=== PATIENT | female | born 1990 | race Caucasian/White ===

== ENCOUNTER 2017-09-18 06:38 | Observation (INO) | payer OTHER ==
[~2017-09-18] VITALS: Ht 165.1 cm; Wt 59.0 kg
[~2017-09-18 06:38] MED LIST: CITA10TA4 PO; IRON18TA2 PO; NITR-29 PO; Z.0.BCPILL PO
[2017-09-18] MEDS ORDERED: DIATRIZOATE MEGLUM/DIATRIZOATE SOD 120 ML BTL (for RAD DIAG) RECTAL ONE (06:39)
[2017-09-18 06:40] VITALS: BP 127/91; PULSE 96; RESP 16; TEMP 97.9; O2SAT 100
[2017-09-18] MEDS ORDERED: SODIUM CHLOR 0.9% 1000 ML INJ 1,000 ML IV SCH (07:08)
[2017-09-18] MEDS ORDERED: MORPHINE SULFATE 4 MG/ML INJ IV PUSH ONE (07:15)
[2017-09-18] MEDS ORDERED: PEG (High)/E-LYTE SOLN 4000 ML BTL PO ONE (07:15)
[2017-09-18] MEDS ORDERED: SODIUM CHLORIDE 0.9% FLUSH 10 ML FLUSH IV FLUSH PRN ×2 (07:15→17:30)
[2017-09-18] MEDS ORDERED: ONDANSETRON HCL 4 MG/2 ML VIAL IVP ONE (07:15)
[2017-09-18] MEDS ORDERED: KETOROLAC TROMETHAMINE 30 MG/ML (IVP) VIAL IVP ONE (07:15)
[2017-09-18 07:26] LABS: AUTOMATED NEUTROPHIL # 4.4 TH/MM3 (1.8-7.7); BASOPHIL % 0.3 % (0.0-2.0); EOSINOPHIL # 0.2 TH/MM3 (0-0.4); EOSINOPHIL % 3.4 % (0.0-4.0); HEMATOCRIT 39.3 % (35.0-46.0); HEMO FLAGS DIFF FINAL; LYMPHOCYTE # 1.8 TH/MM3 (1.0-4.8); MEAN CELL VOLUME 89.1 FL (80.0-100.0); MEAN CORPUSCULAR HEMOGLOBIN 30.2 PG (27.0-34.0); MEAN CORPUSCULAR HGB CONC 33.9 % (32.0-36.0); NEUT % 64.3 % (16.0-70.0); PLATELET COUNT 172 TH/MM3 (150-450); RED BLOOD COUNT 4.42 MIL/MM3 (4.00-5.30); RED CELL DISTRIBUTION WIDTH 12.3 % (11.6-17.2); WHITE BLOOD COUNT 6.9 TH/MM3 (4.0-11.0)
[2017-09-18] MEDS ORDERED: DIATRIZOATE MEGLUM/DIATRIZOATE SOD 9 ML CUP ONE (07:44)
[2017-09-18 07:47] LABS: BLOOD, URINE NEG (NEG); GLUCOSE,URINE NEG (NEG); KETONE, URINE NEG (NEG); NITRITE,URINE NEG (NEG); PH, URINE 6.5 (5.0-8.5); URINE COLOR YELLOW (YELLW/STRAW)
[2017-09-18 07:58] LABS: ALT (GPT) 21 U/L (10-53); ANION GAP 7 MEQ/L (5-15); AST (GOT) 11 U/L (15-37); BICARBONATE 26.7 MEQ/L (21.0-32.0); BLOOD UREA NITROGEN 12 MG/DL (7-18); CHLORIDE 105 MEQ/L (98-107); GLOMERULAR FILTRATION RATE 89 ML/MIN (>89); POTASSIUM 3.8 MEQ/L (3.5-5.1); SODIUM (NA) 139 MEQ/L (136-145)
[2017-09-18 08:01] LABS: ALKALINE PHOSPHATASE 49 U/L (45-117); TOTAL BILIRUBIN ADULT 0.3 MG/DL (0.2-1.0)
[2017-09-18 08:09] LABS: MUCUS URINE FEW /lpf (OCC); WBC, URINE 0-2 /hpf (0-5)
[2017-09-18 08:10] LABS: BACTERIA, URINE OCC /hpf; COMMENT (UR) CULT NOT INDICATED; CULTURE IF INDICATED CULT NOT INDICATED
[2017-09-18 08:15] VITALS: BP 120/88; PULSE 76; RESP 16; O2SAT 100
[2017-09-18] MEDS ORDERED: MORPHINE SULFATE 2 MG/ML INJ IV PUSH ONE (08:15)
[2017-09-18] MEDS ORDERED: DICYCLOMINE HCL 10 MG CAP PO ONE (08:15)
--- NOTE | 2017-09-18 08:35 | PD ---
HPI Chief Complaint: Abdominal Pain Time Seen by Provider: 07:02 Travel History International Travel<30 days: No Contact w/Intl Traveler<30days: No Traveled to known affect area: No History of Present Illness HPI Patient is a 27 year old female who comes in complaining of constipation and abdominal pain. She says she has not had a bowel movement in about 12 days. She says twice she passed a small, hard stool, but nothing else. She says that in the past few days she has developed increasingly severe pain to the sides of her abdomen. She has had some nausea, but no vomiting. She was seen at [facility] twice and discharged with laxatives, which she says have not helped. She has tried enemas without relief. She says this happened last year and she was admitted for 5 days and had bowel prep and GI studies. She says she was told she had gastroparesis, but has not had any issues since last year. PFSH Past Medical History Anemia: Yes Anxiety: Yes Immunizations Current: Yes Thyroid Disease: Yes Tetanus Vaccination: < 5 Years Influenza Vaccination: Yes ?: Not LMP: 09/08/17 Social History Alcohol Use: Yes (BEER, WINE) Tobacco Use: No Substance Use: No Allergies-Medications (Allergen,Severity, Reaction): Coded Allergies: penicillin G (Unverified Allergy, Severe, RASH ALL OVER, 09/18/17) Reported Meds & Prescriptions Reported Meds & Active Scripts Active Review of Systems Except as stated in HPI: all other systems reviewed are Neg General / Constitutional: No: Fever, Chills HENT: No: Headaches, Lightheadedness Cardiovascular: No: Chest Pain or Discomfort Respiratory: No: Shortness of Breath Gastrointestinal: Positive: Nausea, Abdominal Pain, No: Vomiting Genitourinary: No: Dysuria Musculoskeletal: No: Weakness, Edema Skin: No Rash, No Change in Pigmentation Neurologic: No: Weakness, Dizziness Physical Exam Narrative GENERAL: Awake and alert, in no acute distress. SKIN: Focused skin assessment warm/dry. HEAD: Atraumatic. Normocephalic. EYES: Pupils equal and round. No scleral icterus. ENT: Mucous membranes pink and moist. NECK: Trachea midline. No JVD. CARDIOVASCULAR: Regular rate and rhythm. No murmur appreciated. RESPIRATORY: No accessory muscle use. Clear to auscultation. Breath sounds equal bilaterally. GASTROINTESTINAL: Abdomen soft, nondistended. Tender to palpation to both sides of the abdomen, No rebound or guarding. MUSCULOSKELETAL: No obvious deformities. No clubbing. No cyanosis. No edema. NEUROLOGICAL: Awake and alert. No obvious cranial nerve deficits. Motor grossly within normal limits. Normal speech. PSYCHIATRIC: Appropriate mood and affect; insight and judgment normal. Data Data Last Documented VS Vital Signs Date Time Temp Pulse Resp B/P (MAP) Pulse Ox O2 Delivery O2 Flow Rate FiO2 09/18/17 16:10 81 16 110/69 (83) 100 Room Air 09/18/17 06:40 97.9 Orders Orders Complete Blood Count With Diff (09/18/17 07:08) Comprehensive Metabolic Panel (09/18/17 07:08) Lipase (09/18/17 07:08) Urinalysis - C+S If Indicated (09/18/17 07:08) Ct Abd/Pel W Iv Contrast(Rout) (09/18/17 07:08) Iv Access Insert/Monitor (09/18/17 07:08) Ecg Monitoring (09/18/17 07:08) Oximetry (09/18/17 07:08) Morphine Inj (Morphine Inj) (09/18/17 07:15) Ondansetron Inj (Zofran Inj) (09/18/17 07:15) Sodium Chlor 0.9% 1000 Ml Inj (Ns 1000 M (09/18/17 07:08) Sodium Chloride 0.9% Flush (Ns Flush) (09/18/17 07:15) Ketorolac Inj (Toradol Inj) (09/18/17 07:15) Ed Urine Pregnancytest Poc (09/18/17 07:08) Peg (High)/E-Lyte Liq (Colyte Liq) (09/18/17 07:15) Diatrizoate Liq ( Gastroview Liq) (09/18/17 07:44) Morphine Inj (Morphine Inj) (09/18/17 08:15) Dicyclomine (Bentyl) (09/18/17 08:15) Iohexol 350 Inj (Omnipaque 350 Inj) (09/18/17 09:09) Metoclopramide Inj (Reglan Inj) (09/18/17 10:15) Acetamin-Hydrocod 325-5 Mg ([place] 5-325 (09/18/17 12:15) Fleets Enema (Adult) (Fleets Enema (Adul (09/18/17 12:30) Gastrografin Enema (09/18/17 ) Lorazepam Inj (Ativan Inj) (09/18/17 14:30) Sodium Chlor 0.9% 1000 Ml Inj (Ns 1000 M (09/18/17 15:30) Diatrizoate Liq ( Gastroview Liq) (09/18/17 06:39) Admit Order (Ed Use Only) (09/18/17 ) Labs Laboratory Tests Test 09/18/17 07:10 09/18/17 07:23 White Blood Count 6.9 TH/MM3 Red Blood Count 4.42 MIL/MM3 Hemoglobin 13.3 GM/DL Hematocrit 39.3 % Mean Corpuscular Volume 89.1 FL Mean Corpuscular Hemoglobin 30.2 PG Mean Corpuscular Hemoglobin Concent 33.9 % Red Cell Distribution Width 12.3 % Platelet Count 172 TH/MM3 Mean Platelet Volume 9.3 FL Neutrophils (%) (Auto) 64.3 % Lymphocytes (%) (Auto) 26.0 % Monocytes (%) (Auto) 6.0 % Eosinophils (%) (Auto) 3.4 % Basophils (%) (Auto) 0.3 % Neutrophils # (Auto) 4.4 TH/MM3 Lymphocytes # (Auto) 1.8 TH/MM3 Monocytes # (Auto) 0.4 TH/MM3 Eosinophils # (Auto) 0.2 TH/MM3 Basophils # (Auto) 0.0 TH/MM3 CBC Comment DIFF FINAL Differential Comment Blood Urea Nitrogen 12 MG/DL Creatinine 0.79 MG/DL Random Glucose 79 MG/DL Total Protein 7.7 GM/DL Albumin 4.0 GM/DL Calcium Level 9.0 MG/DL Alkaline Phosphatase 49 U/L Aspartate Amino Transf (AST/SGOT) 11 U/L Alanine Aminotransferase (ALT/SGPT) 21 U/L Total Bilirubin 0.3 MG/DL Sodium Level 139 MEQ/L Potassium Level 3.8 MEQ/L Chloride Level 105 MEQ/L Carbon Dioxide Level 26.7 MEQ/L Anion Gap 7 MEQ/L Estimat Glomerular Filtration Rate 89 ML/MIN Lipase 142 U/L Urine Color YELLOW Urine Turbidity HAZY Urine pH 6.5 Urine Specific [place] 1.015 Urine Protein NEG mg/dL Urine Glucose (UA) NEG mg/dL Urine Ketones NEG mg/dL Urine Occult Blood NEG Urine Nitrite NEG Urine Bilirubin NEG Urine Urobilinogen LESS THAN 2.0 MG/DL Urine Leukocyte Esterase NEG Urine RBC NONE /hpf Urine WBC 0-2 /hpf Urine Squamous Epithelial Cells 6-8 /hpf Urine Amorphous Sediment MOD Urine Bacteria OCC /hpf Urine Mucus FEW /lpf Microscopic Urinalysis Comment CULT NOT INDICATED MDM Medical Decision Making Medical Screen Exam Complete: Yes Emergency Medical Condition: Yes Differential Diagnosis Constipation vs obstipation vs obstruction Narrative Course and is a 27-year-old female comes in complaining of constipation. She says she has not had a bowel movement in 12 days. Exam shows tenderness to the size of the abdomen. IV established, labs sent. Labs show no acute abnormalities. CT abdomen and pelvis shows stool in the rectum. Patient given GoLYTELY as well as an enema with no results. She has are the tried [id number] laxatives, enemas, lactulose. I spoke with Dr. Child of GI who recommended a Gastrografin enema. The Gastrografin enema was performed without any results. Patient will be admitted for colonoscopy. Diagnosis Primary Impression: Fecal impaction of colon Admitting Information Admitting Physician Requests: Admit Scripts Wheat Dextrin (Benefiber) 3 Gram/4 Gram Powder 1 UNIT PO DAILY for Bowel Management for 30 Days, CONTAINER 2 tsp daily of Benefiber Prov: Chela Cain PA-C 09/19/17 Christen Manning MD Sep 18, 2017 08:35
[2017-09-18] MEDS ORDERED: IOHEXOL 350 MG/ML 10 ML VIAL (for RAD DIAG) IVCONTRAST ONE (09:09)
--- NOTE | 2017-09-18 09:22 | RADRPT ---
EXAM DATE/TIME: 09/18/2017 08:59 [facility] COMPARISON: No previous studies available for comparison. INDICATIONS : Constipation for twelve days. IV CONTRAST: 64 cc Omnipaque 350 (iohexol) IV ORAL CONTRAST: Prescribed oral contrast ingested. RADIATION DOSE: 5.27 CTDIvol (mGy) MEDICAL HISTORY : None SURGICAL HISTORY : None. ENCOUNTER: Initial ACUITY: 1 week PAIN SCALE: 5/10 LOCATION: Bilateral abdomen TECHNIQUE: Volumetric scanning of the abdomen and pelvis was performed. Using automated exposure control and ad justment of the mA and/or kV according to patient size, radiation dose was kept as low as reasonably achievable to obtain optimal diagnostic quality images. DICOM format image data is available electro nically for review and comparison. FINDINGS: LOWER LUNGS: The visualized lower lungs are clear. LIVER: Homogeneous density without lesion. There is no dilation of the biliary tree. No calcified gallston es. SPLEEN: Normal size without lesion. PANCREAS: Within normal limits. KIDNEYS: Normal in size and shape. There is no mass, stone or hydronephrosis. There is an incidental 8 mm and 5 mm low-density lesion in the right mid kidney that are too small to characterize. ADRENAL GLANDS: Within normal limits. VASCULAR: There is no aortic aneurysm. BOWEL/MESENTERY: The stomach, small bowel, and colon demonstrate no acute abnormality. There is no free intraperitone al air or fluid. Appendix is normal. There is a prominent amount of stool within the rectum. ABDOMINAL WALL: Within normal limits. RETROPERITONEUM: There is no lymphadenopathy. BLADDER: No wall thickening or mass. REPRODUCTIVE: Within normal limits. INGUINAL: There is no lymphadenopathy or hernia. MUSCULOSKELETAL: Within normal limits for patient age. CONCLUSION: No acute finding is identified within the abdomen or pelvis. There is a prominent volume of stool wit hin the rectum. Obdulio Spring MD on September 18, 2017 at 9:17 Board Certified Radiologist. This report was verified electronically.
[2017-09-18] MEDS ORDERED: METOCLOPRAMIDE INJ 10 MG in SODIUM CHLORIDE 0.9% INJ 50 ML IV ONE (10:15)
[2017-09-18 11:46] VITALS: BP 134/79; PULSE 81; RESP 16; O2SAT 100
[2017-09-18] MEDS ORDERED: ACETAMINOPHEN/HYDROcodone 325 MG/5 MG TAB PO ONE (12:15)
[2017-09-18] MEDS ORDERED: SOD PHOSPHATE/SOD BIPHOSPHATE (ADULT) ENEMA 133ML RECTAL ONE (12:30)
[2017-09-18] MEDS ORDERED: LORazepam 2 MG/ML VIAL IV PUSH ONE (14:30)
[2017-09-18] MEDS ORDERED: SODIUM CHLOR 0.9% 1000 ML INJ 1,000 ML IV ONE (15:30)
--- NOTE | 2017-09-18 15:38 | RADRPT ---
EXAM DATE/TIME: 09/18/2017 14:41 [facility] COMPARISON: CT ABDOMEN & PELVIS W CONTRAST, September 18, 2017, 8:59. CT ABDOMEN & PELVIS W CONTRAST, May 31, 2010, 2:37. INDICATIONS : Constipation for over 12 days. FLUORO TIME: 2.0 minutes IMAGE COUNT: ? CONTRAST: 1. Gastroview MEDICAL HISTORY : Gastroparesis. SURGICAL HISTORY : None. ENCOUNTER: Initial ACUITY: 2 weeks PAIN SCORE: 5/10 LOCATION: Abdomen. FINDINGS: Preliminary film is unremarkable. Under fluoroscopic guidance a Gastrografin enema was performed with free flow of contrast to the cecu m. No obstructing mass is visualized. CONCLUSION: Unremarkable Gastrografin enema. Obdulio Spring MD on September 18, 2017 at 15:35 Board Certified Radiologist. This report was verified electronically.
[2017-09-18 16:10] VITALS: BP 110/69; PULSE 81; RESP 16; O2SAT 100
--- NOTE | 2017-09-18 17:14 | PD.CONS ---
HPI History of Present Illness This is a 27 year old who presented with abd pain. Pain is in the lower abdomen and started 3-4 weeks, was intermittent. Eating makes it worse. She had been constipated and has had 1 BM that was soft in the last 12 days. SHe has not had a BM for 8 says. SHe vomited few days ago, is nauseous now. Since then she has consumed 1 bottle mg citrate, BID lactulose for 5 days,1 x linzess , 1 x amitiza, stool softener, 3 x Fleets enemas at home. She had brown watery effluent after the enemas. She had watery stool after the amitiza. In the ER she has had 1 fleets, 1 gallon of GoLytely, and a gastrografin enema. She had 1 pellet of stool after the gastrografin enema, which she said was painful. CT showing prominent volume stool in rectum. She last had EGD/colonoscopy 07/[address] Asencio, couple polyps found, esophagitis. She also had GES which indicated gastroparesis, she was given linzess and amitiza. She has had constipation for the last year. She takes oral iron since 20y of age. NO rectal bleeding. Admits 5 lbs weight loss in the last month. (Melissa Akins) PFSH Past Medical History CANDE Past Surgical History none (Melissa Akins) Coded Allergies: penicillin G (Unverified Allergy, Severe, RASH ALL OVER, 09/18/17) Family History BrCa DM CHF HTN Social History rare ETOH NO tobacco or illicit drug use (Melissa Akins) Review of Systems Constitutional: DENIES: Fever Eyes: DENIES: Blurred vision Ears, nose, mouth, throat: DENIES: Hearing loss Respiratory: DENIES: Wheezing Gastrointestinal: COMPLAINS OF: Abdominal pain, Constipation, Nausea, DENIES: Black stools, Bloody stools, Diarrhea Genitourinary: DENIES: Hematuria Musculoskeletal: DENIES: Joint Swelling Integumentary: DENIES: Jaundice Neurologic: DENIES: Abnormal gait Psychiatric: DENIES: Confusion (Melissa Akins) GI Exam Vitals I&O Vital Signs Date Time Temp Pulse Resp B/P (MAP) Pulse Ox O2 Delivery O2 Flow Rate FiO2 09/18/17 16:10 81 16 110/69 (83) 100 Room Air 09/18/17 11:46 81 16 134/79 (97) 100 Room Air 09/18/17 08:15 76 16 120/88 (99) 100 Room Air 09/18/17 06:40 97.9 96 16 127/91 (103) 100 Room Air I/O 09/17/17 09/17/17 09/17/17 09/18/17 09/18/17 09/18/17 06:59 14:59 22:59 06:59 14:59 22:59 Intake Total 1052 ml Balance 1052 ml Intake IV Total 1052 ml Imaging Last Impressions Abdomen/Pelvis CT 09/18/17 0708 Signed Impressions: Service Date/Time: Monday, September 18, 2017 08:59 - CONCLUSION: No acute finding is identified within the abdomen or pelvis. There is a prominent volume of stool within the rectum. Obdulio Spring MD Enema w/Water Soluble 09/18/17 0000 Signed Impressions: Service Date/Time: Monday, September 18, 2017 14:41 - CONCLUSION: Unremarkable Gastrografin enema. Obdulio Spring MD Laboratory Test 09/18/17 07:10 09/18/17 07:23 White Blood Count 6.9 TH/MM3 Red Blood Count 4.42 MIL/MM3 Hemoglobin 13.3 GM/DL Hematocrit 39.3 % Mean Corpuscular Volume 89.1 FL Mean Corpuscular Hemoglobin 30.2 PG Mean Corpuscular Hemoglobin Concent 33.9 % Red Cell Distribution Width 12.3 % Platelet Count 172 TH/MM3 Mean Platelet Volume 9.3 FL Neutrophils (%) (Auto) 64.3 % Lymphocytes (%) (Auto) 26.0 % Monocytes (%) (Auto) 6.0 % Eosinophils (%) (Auto) 3.4 % Basophils (%) (Auto) 0.3 % Neutrophils # (Auto) 4.4 TH/MM3 Lymphocytes # (Auto) 1.8 TH/MM3 Monocytes # (Auto) 0.4 TH/MM3 Eosinophils # (Auto) 0.2 TH/MM3 Basophils # (Auto) 0.0 TH/MM3 CBC Comment DIFF FINAL Differential Comment Blood Urea Nitrogen 12 MG/DL Creatinine 0.79 MG/DL Random Glucose 79 MG/DL Total Protein 7.7 GM/DL Albumin 4.0 GM/DL Calcium Level 9.0 MG/DL Alkaline Phosphatase 49 U/L Aspartate Amino Transf (AST/SGOT) 11 U/L Alanine Aminotransferase (ALT/SGPT) 21 U/L Total Bilirubin 0.3 MG/DL Sodium Level 139 MEQ/L Potassium Level 3.8 MEQ/L Chloride Level 105 MEQ/L Carbon Dioxide Level 26.7 MEQ/L Anion Gap 7 MEQ/L Estimat Glomerular Filtration Rate 89 ML/MIN Lipase 142 U/L Urine Color YELLOW Urine Turbidity HAZY Urine pH 6.5 Urine Specific [place] 1.015 Urine Protein NEG mg/dL Urine Glucose (UA) NEG mg/dL Urine Ketones NEG mg/dL Urine Occult Blood NEG Urine Nitrite NEG Urine Bilirubin NEG Urine Urobilinogen LESS THAN 2.0 MG/DL Urine Leukocyte Esterase NEG Urine RBC NONE /hpf Urine WBC 0-2 /hpf Urine Squamous Epithelial Cells 6-8 /hpf Urine Amorphous Sediment MOD Urine Bacteria OCC /hpf Urine Mucus FEW /lpf Microscopic Urinalysis Comment CULT NOT INDICATED Physical Examination HEENT: PERRL; normocephalic; atraumatic; no jaundice. CHEST: CTA CARDIAC: RRR ABDOMEN: Soft, nondistended, upper quadrant TTP; no hepatosplenomegaly; bowel sounds are present in all four quadrants. EXTREMITIES: No clubbing, cyanosis, or edema. SKIN: Normal; no rash; no jaundice. PALEONTOLOGY TEACHER: No focal deficits; alert and oriented times three. (Melissa Akins) Assessment and Plan Plan ASSESSMENT - constipation - severe, chronic. For the last year. No BM 8 days. Pt has tried linzess, amitiza, enemas, mg citrate 1 x bottle, 1 gallon GoLytely. Last colonoscopy/EGD 1 y ago and found esophagitis, colon polyps. PLAN - relistor now - 1 x mg citrate - colonoscopy & EGD in am - clears - NPO after midnight - obtain consent - further recs to follow this pt seen by myself and Dr Child and joaquin ntoe is written on his behalf (Melissa Akins) Physician Comments Seen and examined with PUBLIC WORKS TECHNICIAN, EGD/ Colonscopy planned for tomorrow. Mag citrate today. Will follow, thank you (Kevin Child MD) Melissa Akins Sep 18, 2017 17:14 Kevin Child MD Sep 18, 2017 17:40
[2017-09-18] MEDS ORDERED: METHYLNALTREXONE BROMIDE 12 MG/0.6 ML VIAL SQ ONE (17:15)
--- NOTE | 2017-09-18 17:24 | HHI.HP ---
[facility] Primary Care Physician Marga Yap, DO Admission Diagnosis obstipation Diagnoses: (1) Constipation Diagnosis: Principal (2) Obstipation Diagnosis: Principal (3) Abdominal pain Diagnosis: Principal (4) Fecal impaction of colon Diagnosis: Principal Chief Complaint: ABDOMINAL PAIN Travel History International Travel<30 Days: No Contact w/Intl Traveler <30 Da: No Traveled to Known Affected Are: No History of Present Illness Patient is a 27 year old female who comes in complaining of constipation and abdominal pain. She says she has not had a bowel movement in about 12 days. She says twice she passed a small, hard stool, but nothing else. She says that in the past few days she has developed increasingly severe pain to the sides of her abdomen. She has had some nausea, but no vomiting. She was seen at [facility] twice and discharged with laxatives, which she says have not helped. She has tried enemas without relief. She says this happened last year and she was admitted for 5 days and had bowel prep and GI studies. She says she was told she had gastroparesis, but has not had any issues since last year. HAS SEEN GI AND HAD COLONOSCOPY IN THE PAST HAS TRIED EVERY PRESCRIPTION CONSTIPATION MED EXCEPT RELASTOR [facility] AND ER AND RN TO HAVE COLONOSCOPY TOMORROW Review of Systems Constitutional: COMPLAINS OF: Change in appetite, DENIES: Diaphoretic episodes , Fatigue, Fever, Weight gain, Weight loss, Chills, Dizziness Endocrine: DENIES: Abnorml menstrual pattern, Heat/cold intolerance, Polydipsia , Polyuria Eyes: DENIES: Blurred vision, Diplopia, Eye inflammation, Eye pain Ears, nose, mouth, throat: DENIES: Tinnitus, Hearing loss, Vertigo Respiratory: DENIES: Apneas, Cough, Snoring, Wheezing Cardiovascular: DENIES: Chest pain, Palpitations, Syncope, Dyspnea on Exertion Gastrointestinal: COMPLAINS OF: Abdominal pain, Constipation, DENIES: Black stools, Bloody stools, Diarrhea, Nausea, Vomiting Genitourinary: DENIES: Abnormal vaginal bleeding, Dysmenorrhea Musculoskeletal: DENIES: Joint pain, Muscle aches Integumentary: DENIES: Abnormal pigmentation, Pruritus Hematologic/lymphatic: DENIES: Bruising, Lymphadenopathy Immunologic/allergic: DENIES: Eczema, Urticaria Neurologic: DENIES: Abnormal gait, Headache, Localized weakness, Paresthesias Psychiatric: COMPLAINS OF: Anxiety, DENIES: Confusion, Mood changes, Depression Except as stated in HPI: all other systems reviewed are Neg Past Family Social History Past Medical History CONSTIPATION OBSTIPATION ANEMIA ANXIETY THYROID DISEASE Past Surgical History DENIES Reported Medications Reported Meds & Active Scripts Active No Active Prescriptions or Reported Medications Allergies: Coded Allergies: penicillin G (Unverified Allergy, Severe, RASH ALL OVER, 09/18/17) Active Ordered Medications Current Medications Morphine Sulfate (Morphine Inj) 2 mg ONCE ONCE IV PUSH Last administered on 07:39; Start 09/18/17 at 07:15; Stop 09/18/17 at 07:19; Status DC Ondansetron HCl (Zofran Inj) 4 mg ONCE ONCE IVP Last administered on 07:40; Start 09/18/17 at 07:15; Stop 09/18/17 at 07:19; Status DC Sodium Chloride 1,000 ml @ 1,000 mls/hr Q1H IV Last administered on 07:39; Start 09/18/17 at 07:08; Stop 09/18/17 at 08:07; Status DC Sodium Chloride (NS Flush) 2 ml UNSCH PRN IV FLUSH FLUSH AFTER USING IV ACCESS ; Start 09/18/17 at 07:15 Ketorolac Tromethamine (Toradol Inj) 30 mg ONCE ONCE IVP Last administered on 09/18/17 07:40; Start 09/18/17 at 07:15; Stop 09/18/17 at 07:19; Status DC Polyethylene Glycol/ Electrolytes (Colyte Liq) 4,000 ml ONCE ONCE PO Last administered on 09/18/17 09:16; Start 09/18/17 at 07:15; Stop 09/18/17 at 07 :19; Status DC Diatrizoate Meglum/ Diatrizoate Sod ( Gastroview Liq) 18 ml STK-MED ONCE .ROUTE Last administered on 09/18/17 07:49; Start 09/18/17 at 07:44; Stop 09/18/17 at 07:45; Status DC Morphine Sulfate (Morphine Inj) 2 mg ONCE ONCE IV PUSH Last administered on 08:13; Start 09/18/17 at 08:15; Stop 09/18/17 at 08:16; Status DC Dicyclomine HCl (Bentyl) 20 mg ONCE ONCE PO Last administered on 09/18/17 08 :14; Start 09/18/17 at 08:15; Stop 09/18/17 at 08:16; Status DC Iohexol (Omnipaque 350 Inj) 64 ml STK-MED ONCE IVCONTRAST Last administered on 09/18/17 09:09; Start 09/18/17 at 09:09; Stop 09/18/17 at 09:10; Status DC Metoclopramide HCl 10 mg/Sodium Chloride 52 ml @ 104 mls/hr ONCE ONCE IV Last administered on 09/18/17 10:24; Start 09/18/17 at 10:15; Stop 09/18/17 at 10:44; Status DC Acetaminophen/ Hydrocodone Bitart ([place] 5-325 Mg) 1 tab ONCE ONCE PO Last administered on 09/18/17 12:21; Start 09/18/17 at 12:15; Stop 09/18/17 at 12 :16; Status DC Sodium Biphosphate/ Sodium Phosphate (Fleets Enema (Adult)) 133 ml ONCE ONCE RECTAL Last administered on 09/18/17 12:30; Start 09/18/17 at 12:30; Stop 09/18/17 at 12:31; Status DC Lorazepam (Ativan Inj) 0.5 mg ONCE ONCE IV PUSH Last administered on 14:33; Start 09/18/17 at 14:30; Stop 09/18/17 at 14:31; Status DC Sodium Chloride 1,000 ml @ 999 mls/hr BOLUS ONCE IV Last administered on 16:03; Start 09/18/17 at 15:30; Stop 09/18/17 at 16:30; Status DC Diatrizoate Meglum/ Diatrizoate Sod ( Gastroview Liq) 120 ml STK-MED ONCE RECTAL Last administered on 09/18/17 06:39; Start 09/18/17 at 06:39; Stop 09/18/17 at 15:23; Status DC Methylnaltrexone [place] (Relistor Inj) 12 mg ONCE ONCE SQ ; Start 09/18/17 at 17:15; Stop 09/18/17 at 17:16 Family History DENIES Social History DENIES ANY TOBACCO OR ILLICITS OCCASIONAL ALCOHOL IN SCHOOL FOR EDUCATION Physical Exam Vital Signs Vital Signs Date Time Temp Pulse Resp B/P (MAP) Pulse Ox O2 Delivery O2 Flow Rate FiO2 09/18/17 16:10 81 16 110/69 (83) 100 Room Air 09/18/17 11:46 81 16 134/79 (97) 100 Room Air 09/18/17 08:15 76 16 120/88 (99) 100 Room Air 09/18/17 06:40 97.9 96 16 127/91 (103) 100 Room Air Physical Exam GENERAL: This is a well-nourished, well-developed patient, in no apparent distress. SKIN: No rashes, ecchymoses or lesions. Cool and dry. HEAD: Atraumatic. Normocephalic. No temporal or scalp tenderness. EYES: Pupils equal round and reactive. Extraocular motions intact. No scleral icterus. No injection or drainage. ENT: Nose without bleeding, purulent drainage or septal hematoma. Throat without erythema, tonsillar hypertrophy or exudate. Uvula midline. Airway patent. NECK: Trachea midline. No JVD or lymphadenopathy. Supple, nontender, no meningeal signs. CARDIOVASCULAR: Regular rate and rhythm without murmurs, gallops, or rubs. RESPIRATORY: Clear to auscultation. Breath sounds equal bilaterally. No wheezes , rales, or rhonchi. GASTROINTESTINAL: Abdomen soft, , nondistended. No hepato-splenomegaly, or palpable masses. No guarding. MILD ABDOMINAL TENDERNESS MUSCULOSKELETAL: Extremities without clubbing, cyanosis, or edema. No joint tenderness, effusion, or edema noted. No calf tenderness. Negative Homans sign bilaterally. NEUROLOGICAL: Awake and alert. Cranial nerves II through XII intact. Motor and sensory grossly within normal limits. Five out of 5 muscle strength in all muscle groups. Normal speech. INSIGHT AND JUDGEMENT IS GOOD MOOD AND BEHAVIOR IS APPROPRIATE Laboratory Laboratory Tests Test 09/18/17 07:10 09/18/17 07:23 White Blood Count 6.9 Red Blood Count 4.42 Hemoglobin 13.3 Hematocrit 39.3 Mean Corpuscular Volume 89.1 Mean Corpuscular Hemoglobin 30.2 Mean Corpuscular Hemoglobin Concent 33.9 Red Cell Distribution Width 12.3 Platelet Count 172 Mean Platelet Volume 9.3 Neutrophils (%) (Auto) 64.3 Lymphocytes (%) (Auto) 26.0 Monocytes (%) (Auto) 6.0 Eosinophils (%) (Auto) 3.4 Basophils (%) (Auto) 0.3 Neutrophils # (Auto) 4.4 Lymphocytes # (Auto) 1.8 Monocytes # (Auto) 0.4 Eosinophils # (Auto) 0.2 Basophils # (Auto) 0.0 CBC Comment DIFF FINAL Differential Comment Blood Urea Nitrogen 12 Creatinine 0.79 Random Glucose 79 Total Protein 7.7 Albumin 4.0 Calcium Level 9.0 Alkaline Phosphatase 49 Aspartate Amino Transf (AST/SGOT) 11 Alanine Aminotransferase (ALT/SGPT) 21 Total Bilirubin 0.3 Sodium Level 139 Potassium Level 3.8 Chloride Level 105 Carbon Dioxide Level 26.7 Anion Gap 7 Estimat Glomerular Filtration Rate 89 Lipase 142 Urine Color YELLOW Urine Turbidity HAZY Urine pH 6.5 Urine Specific [place] 1.015 Urine Protein NEG Urine Glucose (UA) NEG Urine Ketones NEG Urine Occult Blood NEG Urine Nitrite NEG Urine Bilirubin NEG Urine Urobilinogen LESS THAN 2.0 Urine Leukocyte Esterase NEG Urine RBC NONE Urine WBC 0-2 Urine Squamous Epithelial Cells 6-8 Urine Amorphous Sediment MOD Urine Bacteria OCC Urine Mucus FEW Microscopic Urinalysis Comment CULT NOT INDICATED Result Diagram: 09/18/17 0710 09/18/17 0710 Imaging Last Impressions Abdomen/Pelvis CT 09/18/17 0708 Signed Impressions: Service Date/Time: Monday, September 18, 2017 08:59 - CONCLUSION: No acute finding is identified within the abdomen or pelvis. There is a prominent volume of stool within the rectum. Obdulio Spring MD Enema w/Water Soluble 09/18/17 0000 Signed Impressions: Service Date/Time: Monday, September 18, 2017 14:41 - CONCLUSION: Unremarkable Gastrografin enema. MD Perico Hernandez VTE Risk Assessment Perico VTE Risk Assessment: No/Low Risk (score <= 1) Majorrini Risk Assessment Model Point Value = 1 Point Value = 2 Point Value = 3 Point Value = 5 Age 41-60 Minor surgery BMI > 25 kg/m2 Swollen legs Varicose veins or History of unexplained or recurrent spontaneous Oral contraceptives or hormone replacement Sepsis (< 1 month) Serious lung disease, including pneumonia (< 1 month) Abnormal pulmonary function Acute myocardial infarction Congestive heart failure (< 1 month) History of inflammatory bowel disease Medical patient at bed rest Age 61-74 Arthroscopic surgery Major open surgery (> 45 min) Laparoscopic surgery (> 45 min) Malignancy Confined to bed (> 72 hours) Immobilizing plaster cast Central venous access Age >= 75 History of VTE Family history of VTE Factor V Leiden Prothrombin [id number] Lupus anticoagulant Anticardiolipin antibodies Elevated serum homocysteine Heparin-induced thrombocytopenia Other congenital or acquired thrombophilia Stroke (< 1 month) Elective arthroplasty Hip, pelvis, or leg fracture Acute spinal cord injury (< 1 month) Prophylaxis Regimen Total Risk Factor Score Risk Level Prophylaxis Regimen 0-1 Low Early ambulation 2 Moderate Order ONE of the following: *Sequential Compression Device (SCD) *Heparin 5000 units SQ BID 3-4 Higher Order ONE of the following medications: *Heparin 5000 units SQ TID *Enoxaparin/Lovenox 40 mg SQ daily (WT < 150 kg, CrCl > 30 mL/min) *Enoxaparin/Lovenox 30 mg SQ daily (WT < 150 kg, CrCl > 10-29 mL/min) *Enoxaparin/Lovenox 30 mg SQ BID (WT < 150 kg, CrCl > 30 mL/min) AND/OR *Sequential Compression Device (SCD) 5 or more Highest Order ONE of the following medications: *Heparin 5000 units SQ TID (Preferred with Epidurals) *Enoxaparin/Lovenox 40 mg SQ daily (WT < 150 kg, CrCl > 30 mL/min) *Enoxaparin/Lovenox 30 mg SQ daily (WT < 150 kg, CrCl > 10-29 mL/min) *Enoxaparin/Lovenox 30 mg SQ BID (WT < 150 kg, CrCl > 30 mL/min) AND *Sequential Compression Device (SCD) Assessment and Plan Assessment and Plan SEVERE CONSTIPATION- WILL DEFER TO GI- SINCE EVERYTHING AN OUTPATIENT HAS FAILED [facility] GI ABDOMINAL PAIN- NOT MUCH DUE TO SEVERE CONSTIPATION FOR COLONOSCOPY TOMORROW CONSIDER RELASTOR SINCE EVERYTHING ELSE HAS BEEN TRIED ALREADY CONTINUE MEDS FOR ANXIETY NEEDED CHECK THYROID AND AM LABS Code Status FULL CODE Discussed Condition With [facility] AND RN AND ER AND PATIENT Randal Wong MRuddy NEGRON Sep 18, 2017 17:24
[2017-09-18] MEDS ORDERED: BISACODYL 10 MG SUPP RECTAL PRN (17:30)
[2017-09-18] MEDS ORDERED: oxyCODONE/ACETAMINOPHEN 5 MG/325 MG TAB PO PRN (17:30)
[2017-09-18] MEDS ORDERED: MORPHINE SULFATE 4 MG/ML INJ IV PUSH PRN ×2 (17:30)
[2017-09-18] MEDS ORDERED: PROCHLORPERAZINE 25 MG SUPP RECTAL PRN (17:30)
[2017-09-18] MEDS ORDERED: MAGNESIUM HYDROXIDE SUSP 30 ML CUP PO PRN (17:30)
[2017-09-18] MEDS ORDERED: MAGNESIUM CITRATE SOLN 300 ML BTL PO ONE (17:30)
[2017-09-18] MEDS ORDERED: NALOXONE HCL 0.4 MG/ML AMP IV PUSH PRN (17:30)
[2017-09-18] MEDS ORDERED: SENNOSIDES 8.6 MG TAB PO PRN (17:30)
[2017-09-18] MEDS ORDERED: LACTULOSE SYRUP 20 GM/30 ML CUP PO PRN (17:30)
[2017-09-18] MEDS ORDERED: ACETAMINOPHEN 325 MG TAB PO PRN ×2 (17:30)
[2017-09-18] MEDS: oxyCODONE/ACETAMINOPHEN 10 MG/325 MG TAB PO PRN (17:49)
[2017-09-18] MEDS: SODIUM CHLOR 0.9% 1000 ML INJ 1,000 ML IV SCH (18:32)
[2017-09-18] MEDS: ONDANSETRON HCL 4 MG/2 ML VIAL IVP PRN (18:33)
[2017-09-18 19:14] VITALS: BP 110/76; PULSE 83; RESP 18; TEMP 98.1; O2SAT 98
[2017-09-18] MEDS: SODIUM CHLORIDE 0.9% FLUSH 10 ML FLUSH IV FLUSH SCH (20:38)
[2017-09-18] MEDS: DOCUSATE SODIUM 50 MG/SENNA 8.6 MG TAB PO SCH (20:38)
[2017-09-18 23:25] VITALS: BP 109/60; PULSE 71; RESP 17; TEMP 97.9; O2SAT 98
[2017-09-18] MEDS ORDERED: ZOLPIDEM TARTRATE 5 MG TAB PO ONE (23:30)
[2017-09-19] MEDS: MAGNESIUM CITRATE SOLN 300 ML BTL PO SCH ×2 (01:07→09:29)
[2017-09-19 05:27] VITALS: BP 108/65; PULSE 82; RESP 18; TEMP 98.4; O2SAT 98
[2017-09-19] MEDS: SODIUM CHLOR 0.9% 1000 ML INJ 1,000 ML IV SCH (05:29)
[2017-09-19] MEDS: oxyCODONE/ACETAMINOPHEN 10 MG/325 MG TAB PO PRN ×2 (05:30→13:16)
[2017-09-19] MEDS: ONDANSETRON HCL 4 MG/2 ML VIAL IVP PRN ×2 (05:30→13:15)
[2017-09-19] MEDS ORDERED: LACTATED RINGER'S 1000 ML IV PRN (06:00)
[2017-09-19] MEDS ORDERED: CHLORHEXIDINE GLUCONATE 2 % 1 PACK (2 CLOTHS) TOPICAL PRN (06:00)
[2017-09-19] MEDS ORDERED: POVIDONE IODINE 5% (ANTISEPSIS KIT) 4 APPLICATIONS EACH NARE PRN (06:00)
[2017-09-19 06:28] LABS: AUTOMATED NEUTROPHIL # 2.4 TH/MM3 (1.8-7.7); BASOPHIL % 0.4 % (0.0-2.0); EOSINOPHIL # 0.2 TH/MM3 (0-0.4); EOSINOPHIL % 4.6 % (0.0-4.0); HEMATOCRIT 36.4 % (35.0-46.0); HEMO FLAGS DIFF FINAL; LYMPH % 38.6 % (9.0-44.0); LYMPHOCYTE # 1.9 TH/MM3 (1.0-4.8); MEAN CELL VOLUME 88.6 FL (80.0-100.0); MEAN CORPUSCULAR HGB CONC 33.8 % (32.0-36.0); MONO % 7.1 % (0.0-8.0); NEUT % 49.3 % (16.0-70.0); PLATELET COUNT 157 TH/MM3 (150-450); RED BLOOD COUNT 4.11 MIL/MM3 (4.00-5.30); RED CELL DISTRIBUTION WIDTH 12.2 % (11.6-17.2)
[2017-09-19 06:54] LABS: ALT (GPT) 11 U/L (10-53); ANION GAP 8 MEQ/L (5-15); AST (GOT) 9 U/L (15-37); BICARBONATE 24.4 MEQ/L (21.0-32.0); BLOOD UREA NITROGEN 4 MG/DL (7-18); CHLORIDE 105 MEQ/L (98-107); GLOMERULAR FILTRATION RATE 107 ML/MIN (>89); MAGNESIUM 2.1 MG/DL (1.5-2.5); POTASSIUM 3.6 MEQ/L (3.5-5.1); SODIUM (NA) 137 MEQ/L (136-145); TOTAL BILIRUBIN ADULT 0.4 MG/DL (0.2-1.0)
[2017-09-19 07:04] LABS: ALKALINE PHOSPHATASE 41 U/L (45-117); FREE T4 1.15 NG/DL (0.76-1.46)
[2017-09-19 07:47] VITALS: BP 101/66; PULSE 85; RESP 16; TEMP 98.1; O2SAT 98
[2017-09-19] MEDS: SODIUM CHLORIDE 0.9% FLUSH 10 ML FLUSH IV FLUSH SCH (09:00)
[2017-09-19] MEDS: DOCUSATE SODIUM 50 MG/SENNA 8.6 MG TAB PO SCH (09:28)
[2017-09-19] MEDS ORDERED: MORPHINE SULFATE 2 MG/ML INJ ONE (11:01)
--- NOTE | 2017-09-19 11:59 | GIPROC ---
[facility] [address] [facility]. [facility], [address] EGD PROCEDURE REPORT EXAM DATE: 09/19/2017 PATIENT NAME: Crys Gonzalez MR #: [id number] BIRTHDATE: 1990 ATTENDING: Kevin Child MD ORDER #: [id number] SEARCH ENGINE OPTIMIZATION SPECIALIST: Layla Murray and Alexandru Geiger STATUS: inpatient INDICATIONS: The patient is a 27 yr old female here for an EGD due to history of esophageal reflux PROCEDURE PERFORMED: EGD w/ biopsy MEDICATIONS: None and Per Anesthesia. TOPICAL ANESTHETIC: CONSENT: The patient understands the risks and benefits of the procedure and understands that these risks include, but are not limited to: sedation, allergic reaction, infection, perforation and/or bleeding. Alternative means of evaluation and treatment include, among others: physical exam, x-rays, and/or surgical intervention. The patient elects to proceed with this endoscopic procedure. medical equipment was checked for proper function. Hand hygiene and appropriate measures for infection prevention was taken. After the risks, benefits and alternatives of the procedure were thoroughly explained, Informed consent was verified, confirmed and timeout was successfully executed by the treatment team. The patient was anesthetized with topical anesthesia and the EC-[id number] (Pedi C) endoscope was introduced through the mouth and advanced to the second portion of the duodenum. Retroflexed views revealed no abnormalities The gastroscope was then slowly withdrawn and removed. ESOPHAGUS: There was LA Class A esophagitis noted. A biopsy was performed using cold forceps. Sample sent for histology. STOMACH: There was erythematous moderate gastritis in the gastric antrum. A biopsy was performed using cold forceps. Sample sent for histology. DUODENUM: The duodenal mucosa appeared normal in the bulb and second portion of the duodenum. ADVERSE EVENTS: There were no complications. IMPRESSIONS: 1. There was LA Class A esophagitis noted; biopsy was performed 2. There was erythematous gastritis in the gastric antrum; biopsy was performed 3. Normal duodenal mucosa in the bulb and second portion of the duodenum 4. Retroflexed views revealed no abnormalities RECOMMENDATIONS: 1. Await biopsy results. Biopsy results will not be ready for 7-10 days. If you don't hear from us in two weeks, call our office for biopsy results. 2. Anti-reflux regimen PATIENT CONDITION: stable DISPOSITION: Inpatient REPEAT EXAM: Return 1 year EGD pending biopsy results Kevin Child MD eSigned: Kevin Child MD 09/19/2017 11:58 AM cc: PATIENT NAME: Crys Gonzalez MR#: [id number]
[2017-09-19] MEDS ORDERED: PROPOFOL 200 MG/20 ML AMP IV ONE (12:00)
--- NOTE | 2017-09-19 12:01 | GIPROC ---
[facility] [address] [facility]. [facility], [address] COLONOSCOPY PROCEDURE REPORT EXAM DATE: 09/19/2017 PATIENT NAME: Crys Gonzalez MR #: [id number] BIRTHDATE: 1990 ENDOSCOPIST: Kevin Child MD ORDER #: [id number] RETANNED LEATHER ROLLER: Layla Murray and Alexandru Geiger STATUS: inpatient INDICATIONS: The patient is a 27 yr old female here for a colonoscopy due to change in bowel habits and constipation PROCEDURE PERFORMED: Colonoscopy, diagnostic MEDICATIONS: None and Per Anesthesia. PREP QUALITY: poor PREP TYPE:GoLytely ESTIMATED BLOOD LOSS: None CONSENT: The patient understands the risks and benefits of the procedure and understands that these risks include, but are not limited to: sedation, allergic reaction, infection, perforation and/or bleeding. Alternative means of evaluation and treatment include, among others: physical exam, x-rays, and/or surgical intervention. The patient elects to proceed with this endoscopic procedure. medical equipment was checked for proper function. Hand hygiene and appropriate measures for infection prevention was taken. After the risks, benefits and alternatives of the procedure were thoroughly explained, Informed consent was verified, confirmed and timeout was successfully executed by the treatment team. A digital exam revealed external hemorrhoids The Pentax EC-[id number] endoscope was introduced through the anus and advanced to the cecum, which was identified by both the appendix and ileocecal valve. The instrument was then slowly withdrawn as the colon was fully examined. COLON FINDINGS: The colonic mucosa appeared normal. Retroflexed views revealed internal hemorrhoids and Retroflexed views revealed small internal hemorrhoids The scope was then completely withdrawn from the patient and the procedure terminated. PROCEDURE WITHDRAWAL TIME:6minutes ADVERSE EVENTS: There were no complications. IMPRESSIONS: 1. The colonic mucosa appeared normal 2. Retroflexed views revealed internal hemorrhoids 3. Retroflexed views revealed small internal hemorrhoids 4. Revealed external hemorrhoids RECOMMENDATIONS: 1. Benefiber 2 tsp daily 2. High fiber diet 3. Can dc home with gi fu as needed. RECALL: Return 5 years Colonoscopy Kevin Child MD eSigned: Kevin Child MD 09/19/2017 12:01 PM cc:
[2017-09-19 12:21] LABS: HEMOGLOBIN A1a 0.8 %; HEMOGLOBIN A1b 0.6 %; HEMOGLOBIN Ao 87.4 %; HEMOGLOBIN LA1C 1.7 %
[2017-09-19 12:22] VITALS: BP 118/77; PULSE 72; TEMP 97.6; O2SAT 99
--- NOTE | 2017-09-19 14:20 | HHI.DCPOC ---
Discharge Care Plan Diagnosis: (1) Internal and external hemorrhoids without complication (2) Esophagitis (3) Gastritis (4) Fecal impaction in rectum (5) Abdominal pain (6) Constipation Your Health Problems Are: Irregular Bowel Function Goals to Promote Your Health * To prevent worsening of your condition and complications * To maintain your health at the optimal level Directions to Meet Your Goals Take your medications as prescribed Follow your dietary instruction Follow activity as directed Keep your appointments as scheduled Take your immunizations and boosters as scheduled If your symptoms worsen call your PCP, if no PCP go to Urgent Care Center or Emergency Room Smoking is Dangerous to Your Health. Avoid second hand smoke Call the 24-hour hour crisis hotline for domestic abuse at Chela Cain PA-C Sep 19, 2017 2:20 pm
[2017-09-19] MEDS ORDERED: WHEA1POW13 PO (14:22)
--- NOTE | 2017-09-19 14:22 | HHI.PR ---
Subjective Remarks Doing well just had colonoscopy, cleared by GI for discharge Objective Vitals Vital Signs Date Time Temp Pulse Resp B/P (MAP) Pulse Ox O2 Delivery O2 Flow Rate FiO2 09/19/17 12:22 97.6 72 12 118/77 (91) 99 09/19/17 07:47 98.1 85 16 101/66 (78) 98 09/19/17 06:38 18 09/19/17 05:27 98.4 82 18 108/65 (79) 98 09/18/17 23:25 97.9 71 17 109/60 (76) 98 09/18/17 19:14 98.1 83 18 110/76 (87) 98 09/18/17 17:58 09/18/17 16:10 81 16 110/69 (83) 100 Room Air I/O 09/18/17 09/18/17 09/18/17 09/19/17 09/19/17 09/19/17 07:00 15:00 23:00 07:00 15:00 23:00 Intake Total 1052 ml 1000 ml 300 ml Balance 1052 ml 1000 ml 300 ml Intake IV Total 1052 ml 1000 ml Other 300 ml Result Diagram: 09/19/1747 09/19/17 0547 Objective Remarks GENERAL: This is a well-nourished, well-developed patient, in no apparent distress. SKIN: No rashes, warm and dry HEAD: Atraumatic. Normocephalic. EYES: Pupils equal round and reactive. Extraocular motions intact. No scleral icterus. ENT: Nose without bleeding, or drainage, Airway patent. NECK: Trachea midline. Supple CARDIOVASCULAR: Regular rate and rhythm without murmurs, gallops, or rubs. RESPIRATORY: Fair air entry bilaterally. No wheezes, rales, or rhonchi. GASTROINTESTINAL: Abdomen soft, non-tender, nondistended. Positive bowel sounds MUSCULOSKELETAL: Extremities without clubbing, cyanosis, or edema. Pedal pulses appreciated NEUROLOGICAL: Awake and alert. Moves all extremity. Normal speech.no focal neurological deficit A/P Problem List: (1) Constipation ICD Code: K59.00 - Constipation, unspecified (2) Obstipation ICD Code: K59.00 - Constipation, unspecified (3) Abdominal pain ICD Code: R10.9 - Unspecified abdominal pain (4) Fecal impaction of colon ICD Code: K56.41 - Fecal impaction Assessment and Plan Patient admitted for severe chronic constipation, GI consulted, started Relistor , nothing by mouth, EGD colonoscopy has been done showed 1. There was LA Class A esophagitis noted; biopsy was performed 2. There was erythematous gastritis in the gastric antrum; biopsy was performed 3. Normal duodenal mucosa in the bulb and second portion of the duodenum 4. Retroflexed views revealed no abnormalities GI recommended 1. Await biopsy results. Biopsy results will not be ready for 7-10 days. If you don't hear from us in two weeks, call our office for biopsy results. 2. Anti-reflux regimen PATIENT CONDITION: stable DISPOSITION: Inpatient REPEAT EXAM: Return 1 year EGD pending biopsy results Discharge Planning Discharge patient to home Condition on discharge: Improved High-fiber diet Diet as tolerated Ad Kristina activity Rx written: As above Follow-up with primary care physician Moira Cordoba MD Sep 19, 2017 14:22
[2017-09-19 14:44] VITALS: RESP 18
== END 2017-09-19 15:11 | disposition home or self-care (01) ==
LOC: NEPC 06:38 → NEDA 16:34 → NEPGCP 19:01
PROVIDERS: ADMIT Hospitalist; ATTEND Hospitalist
DX: K59.00 Constipation, unspecified (principal); R10.9 Unspecified abdominal pain; K56.41 Fecal impaction; K29.50 Unspecified chronic gastritis without bleeding; K29.00 Acute gastritis without bleeding; K20.0 Eosinophilic esophagitis; K64.4 Residual hemorrhoidal skin tags; K64.8 Other hemorrhoids; F41.9 Anxiety disorder, unspecified
CPT/HCPCS: 00740; 00810; 43239; 45378; 74177; 74270; 80053; 81001; 83036; 83690; 83735; 84100; 84439; 84443; 84703; 85025; 88305; 88312; 96361; 96365; 96375; 96376; 99285; G0378; J1885; J2060; J2212; J2270; J2405; J2765; J7030; Q9963; Q9967

== ENCOUNTER 2018-01-22 13:14 | Emergency (ER) | payer OTHER ==
[~2018-01-22] VITALS: Ht 165.1 cm; Wt 63.0 kg
[~2018-01-22 13:14] MED LIST changes: -CITA10TA4 PO; -IRON18TA2 PO; -NITR-29 PO; +WHEA1POW13 PO; -Z.0.BCPILL PO
[2018-01-22 13:55] VITALS: BP 116/67; PULSE 88; RESP 19; TEMP 98.9; O2SAT 95
[2018-01-22 14:54] LABS: BILIRUBIN, URINE NEG (NEG); BLOOD, URINE SMALL (NEG); GLUCOSE,URINE NEG (NEG); KETONE, URINE NEG (NEG); NITRITE,URINE NEG (NEG); SQUAMOUS EPITHELIAL CELL URINE <1 /hpf (0-5); URINE COLOR LIGHT-YELLOW (YELLW/STRAW); URINE LEUKOCYTE ESTERASE NEG (NEG)
[2018-01-22 14:58] LABS: BASOPHIL % 0.1 % (0.0-2.0); EOSINOPHIL % 0.1 % (0.0-4.0); HEMATOCRIT 40.7 % (35.0-46.0); LYMPH % 8.4 % (9.0-44.0); LYMPHOCYTE # 1.1 TH/MM3 (1.0-4.8); MEAN CELL VOLUME 86.2 FL (80.0-100.0); MEAN CORPUSCULAR HEMOGLOBIN 29.6 PG (27.0-34.0); MEAN CORPUSCULAR HGB CONC 34.4 % (32.0-36.0); MEAN PLATELET VOLUME 8.9 FL (7.0-11.0); MONO % 4.1 % (0.0-8.0); MONOCYTE # 0.6 TH/MM3 (0-0.9); NEUT % 87.3 % (16.0-70.0); PLATELET COUNT 258 TH/MM3 (150-450); RED BLOOD COUNT 4.73 MIL/MM3 (4.00-5.30); RED CELL DISTRIBUTION WIDTH 11.8 % (11.6-17.2); WHITE BLOOD COUNT 13.7 TH/MM3 (4.0-11.0)
[2018-01-22] MEDS ORDERED: SODIUM CHLOR 0.9% 1000 ML INJ 1,000 ML IV SCH (14:58)
[2018-01-22] MEDS ORDERED: SODIUM CHLORIDE 0.9% FLUSH 10 ML FLUSH IV FLUSH PRN (15:00)
[2018-01-22] MEDS ORDERED: ONDANSETRON HCL 4 MG/2 ML VIAL IVP ONE (15:00)
[2018-01-22] MEDS ORDERED: KETOROLAC TROMETHAMINE 30 MG/ML (IVP) VIAL IVP ONE (15:00)
[2018-01-22 15:06] LABS: AST (GOT) 13 U/L (15-37); BICARBONATE 26.8 MEQ/L (21.0-32.0); BLOOD UREA NITROGEN 6 MG/DL (7-18); CALCIUM 8.9 MG/DL (8.5-10.1); CHLORIDE 104 MEQ/L (98-107); CREATININE 0.72 MG/DL (0.50-1.00); GLOMERULAR FILTRATION RATE 99 ML/MIN (>89); GLUCOSE,RANDOM 90 MG/DL (74-106); SODIUM (NA) 140 MEQ/L (136-145)
[2018-01-22 15:09] LABS: ALKALINE PHOSPHATASE 54 U/L (45-117); ALT (GPT) 18 U/L (10-53); TOTAL BILIRUBIN ADULT 0.5 MG/DL (0.2-1.0)
--- NOTE | 2018-01-22 15:10 | PD ---
HPI Chief Complaint: Abdominal Pain Time Seen by Provider: 14:42 Travel History International Travel<30 days: No Contact w/Intl Traveler<30days: No Traveled to known affect area: No History of Present Illness HPI 27-year-old female presents to the emergency department with complaint of rectal bleeding and mid and left lower quadrant abdominal pain that started yesterday. She was seen at [facility] yesterday and says they did not do any blood work or CT scan and associated her pain with her gastroparesis, gave her 2 doses of IV Dilaudid and sent her home. She says his pain is not similar to her gastroparesis pain. Reports vomiting today and cannot keep anything down. Denies fevers. Denies dysuria. Denies rectal pain. Currently on her menstrual period. Rates pain 7/10. Describes as sharp and constant. Denies history of abdominal surgeries. Bleeding and pain is aggravated when she pushes as if she is having a bowel movement. No known relieving factors. Primary care provider is Dr. Garcia. Allergies to penicillin. History of gastroparesis. Has no other medical complaints. No other modifying factors or associated signs and symptoms. PFSH Past Medical History Anemia: Yes Blood Disorders: No Anxiety: Yes Depression: No Cancer: No Cardiovascular Problems: No Endocrine: No Gastrointestinal Disorders: Yes (GASTROPARESIS) Genitourinary: No Immune Disorder: No Implanted Vascular Access Dvce: No Musculoskeletal: No Neurologic: No Psychiatric: Yes Reproductive: No Respiratory: No Immunizations Current: Yes Thyroid Disease: Yes ?: Not LMP: 01/22/18 Past Surgical History Other Surgery: No Social History Alcohol Use: Yes (BEER, WINE) Tobacco Use: No Substance Use: No Allergies-Medications (Allergen,Severity, Reaction): Coded Allergies: penicillin G (Unverified Allergy, Severe, RASH ALL OVER, 01/22/18) Reported Meds & Prescriptions Reported Meds & Active Scripts Active Benefiber (Wheat Dextrin) 3 Gram/4 Gram Powder 1 Unit PO DAILY 30 Days 2 tsp daily of Benefiber Review of Systems Except as stated in HPI: all other systems reviewed are Neg Physical Exam Narrative GENERAL: Well-nourished, well-developed female patient, in no acute distress; afebrile SKIN: Warm and dry. HEAD: Atraumatic. Normocephalic. EYES: Pupils equal and round. No scleral icterus. No injection or drainage. ENT: Mucosa pink and moist. Airway patent. NECK: Trachea midline. CARDIOVASCULAR: Regular rate and rhythm. No murmur appreciated. RESPIRATORY: No accessory muscle use. Clear to auscultation. Breath sounds equal bilaterally. GASTROINTESTINAL: Abdomen soft, tenderness on palpation to umbilical and left lower quadrant area, nondistended. Hepatic and splenic margins not palpable. Bowel sounds are active 4 quadrants. Nonrigid. No rebound tenderness. No guarding. RECTAL EXAM: Exam done in the presence of a nurse. No masses or tenderness. Rectal vault is empty; without stool; small amount of blood noted. Hemaprompt positive. No visualized external hemorrhoids. BACK: No CVA tenderness. MUSCULOSKELETAL: No obvious deformities. No clubbing. No cyanosis. No edema. NEUROLOGICAL: Awake and alert. Oriented 3. No obvious cranial nerve deficits. Motor grossly within normal limits. Normal speech. PSYCHIATRIC: Appropriate mood and affect; insight and judgment normal. Data Data Last Documented VS Vital Signs Date Time Temp Pulse Resp B/P (MAP) Pulse Ox O2 Delivery O2 Flow Rate FiO2 01/22/18 18:03 83 16 121/80 (94) 100 Room Air 01/22/18 13:55 98.9 Orders Orders Complete Blood Count With Diff (01/22/18 14:00) Comprehensive Metabolic Panel (01/22/18 14:00) Urinalysis - C+S If Indicated (01/22/18 14:00) Iv Access Insert/Monitor (01/22/18 14:00) Oxygen Administration (01/22/18 14:00) Oximetry (01/22/18 14:00) Lipase (01/22/18 14:00) Ed Urine Pregnancytest Poc (01/22/18 14:44) Ct Abd/Pel W Iv Contrast(Rout) (01/22/18 14:58) Ondansetron Inj (Zofran Inj) (01/22/18 15:00) Sodium Chlor 0.9% 1000 Ml Inj (Ns 1000 M (01/22/18 14:58) Sodium Chloride 0.9% Flush (Ns Flush) (01/22/18 15:00) Ketorolac Inj (Toradol Inj) (01/22/18 15:00) Morphine Inj (Morphine Inj) (01/22/18 15:45) Iohexol 350 Inj (Omnipaque 350 Inj) (01/22/18 17:55) Morphine Inj (Morphine Inj) (01/22/18 18:15) Labs Laboratory Tests Test 01/22/18 14:07 White Blood Count 13.7 TH/MM3 Red Blood Count 4.73 MIL/MM3 Hemoglobin 14.0 GM/DL Hematocrit 40.7 % Mean Corpuscular Volume 86.2 FL Mean Corpuscular Hemoglobin 29.6 PG Mean Corpuscular Hemoglobin Concent 34.4 % Red Cell Distribution Width 11.8 % Platelet Count 258 TH/MM3 Mean Platelet Volume 8.9 FL Neutrophils (%) (Auto) 87.3 % Lymphocytes (%) (Auto) 8.4 % Monocytes (%) (Auto) 4.1 % Eosinophils (%) (Auto) 0.1 % Basophils (%) (Auto) 0.1 % Neutrophils # (Auto) 12.0 TH/MM3 Lymphocytes # (Auto) 1.1 TH/MM3 Monocytes # (Auto) 0.6 TH/MM3 Eosinophils # (Auto) 0.0 TH/MM3 Basophils # (Auto) 0.0 TH/MM3 CBC Comment DIFF FINAL Differential Comment Urine Color LIGHT-YELLOW Urine Turbidity CLEAR Urine pH 6.0 Urine Specific [place] 1.007 Urine Protein NEG mg/dL Urine Glucose (UA) NEG mg/dL Urine Ketones NEG mg/dL Urine Occult Blood SMALL Urine Nitrite NEG Urine Bilirubin NEG Urine Urobilinogen LESS THAN 2.0 MG/DL Urine Leukocyte Esterase NEG Urine RBC 1 /hpf Urine WBC 1 /hpf Urine Squamous Epithelial Cells <1 /hpf Microscopic Urinalysis Comment CULT NOT INDICATED Blood Urea Nitrogen 6 MG/DL Creatinine 0.72 MG/DL Random Glucose 90 MG/DL Total Protein 8.0 GM/DL Albumin 4.0 GM/DL Calcium Level 8.9 MG/DL Alkaline Phosphatase 54 U/L Aspartate Amino Transf (AST/SGOT) 13 U/L Alanine Aminotransferase (ALT/SGPT) 18 U/L Total Bilirubin 0.5 MG/DL Sodium Level 140 MEQ/L Potassium Level 3.9 MEQ/L Chloride Level 104 MEQ/L Carbon Dioxide Level 26.8 MEQ/L Anion Gap 9 MEQ/L Estimat Glomerular Filtration Rate 99 ML/MIN Lipase 88 U/L MDM Medical Decision Making Medical Screen Exam Complete: Yes Emergency Medical Condition: Yes Medical Record Reviewed: Yes Differential Diagnosis Lower GI bleed, rectal bleeding, hemorrhoids, gastroenteritis, gastritis, diverticulitis Narrative Course 27-year-old female with umbilical and left lower quadrant abdominal pain, vomiting, rectal bleeding since yesterday. She has history of gastroparesis, but states this pain is not consistent with her gastroparesis. She is afebrile and nontoxic-appearing. Reports vomiting. Was seen at [facility] yesterday , for the same complaint, and she had no labs or CT scan, per the patient. CBC , CMP, lipase, urinalysis, UPT, IV, normal saline bolus, Toradol, Zofran, CT abdomen/pelvis ordered. 1510: WBC 13.7, otherwise CBC unremarkable. CMP unremarkable. Lipase 88. Urinalysis without signs of infection. 1533: Hemaprompt positive. Patient reports continued abdominal pain. Morphine ordered. 165: CBC 13.7, otherwise CBC unremarkable. CMP unremarkable. Lipase 88. Urinalysis unremarkable. 182: CT abd/pelvis concludes: There is questionable minimal thickening of the colon which may indicate a very mild colitis. There is a small amount free fluid in the pelvis. I discussed patient with Dr. Mckeon, my attending physician, and he agrees with discharge. Cipro, Flagyl, [place], Zofran prescribed for home. Instructed patient to call tomorrow and make an appointment with software specialist for follow-up. Instructed patient to follow up with primary care provider. Patient verbalizes understanding and agreement with treatment plan. Patient is medically cleared and stable for discharge. Discussed reasons to return to the emergency department. Patient agrees with treatment plan. The patients vital signs are stable and the patient is stable for outpatient follow-up and treatment. Patient discharged home, stable and in no acute distress. Diagnosis Primary Impression: Colitis Referrals: Incubator Tender Primary Care Physician Patient Instructions: Colitis (ED), General Instructions Departure Forms: Tests/Procedures, Work Release Enter return to work date: Jan 25, 2018 Additional Instructions: Antibiotics as prescribed and complete full course Take Zofran as prescribed for nausea/vomiting Increase fluid intake, starting with clear fluids; advancing to a bland diet as tolerated Effort diet to include crackers, rice, toast, bananas as tolerated, advancing slowly to regular diet Follow-up primary care provider in next 1-2 days Follow-up with software specialist; call tomorrow and make an appointment Return to emergency department immediately with worsening of symptoms Med/Other Pt SpecificInfo: Prescription(s) given Scripts Hydrocodone-Acetaminophen ([place]) 5 Mg-325 Mg Tab 1 TAB PO Q4H Y for PAIN, #8 TAB 0 Refills Prov: Dayana Stovall 01/22/18 Ondansetron Odt (Zofran Odt) 4 Mg Tab 4 MG SL Q8HR Y for Nausea/Vomiting, #6 TAB 0 Refills Prov: Dayana Stovall 01/22/18 Metronidazole (Flagyl) 500 Mg Tab 500 MG PO TID for Infection for 7 Days, TAB 0 Refills Prov: Dayana Stovall 01/22/18 Ciprofloxacin (Ciprofloxacin) 500 Mg Tab 500 MG PO BID for Infection for 7 Days, #14 TAB 0 Refills Prov: Dayana Stovall 01/22/18 Disposition: 01 DISCHARGE HOME Condition: Stable Dayana Stovall Jan 22, 2018 15:09
[2018-01-22] MEDS ORDERED: MORPHINE SULFATE 4 MG/ML INJ IV PUSH ONE ×2 (15:45→18:15)
[2018-01-22 16:44] VITALS: BP 112/69; PULSE 80; RESP 18; O2SAT 98
[2018-01-22] MEDS ORDERED: IOHEXOL 350 MG/ML 10 ML VIAL (for RAD DIAG) IVCONTRAST ONE (17:55)
[2018-01-22 18:03] VITALS: BP 121/80; PULSE 83; RESP 16; O2SAT 100
--- NOTE | 2018-01-22 18:15 | RADRPT ---
EXAM DATE/TIME: 01/22/2018 17:51 [facility] COMPARISON: No previous studies available for comparison. INDICATIONS : Rectal bleeding with bowel movement today. IV CONTRAST: 71 cc Omnipaque 350 (iohexol) IV ORAL CONTRAST: No oral contrast ingested. RADIATION DOSE: 9.45 CTDIvol (mGy) MEDICAL HISTORY : thyroid disease, gastroparesis, anemia SURGICAL HISTORY : None. ENCOUNTER: Initial ACUITY: 1 day PAIN SCALE: 2/10 LOCATION: Bilateral lower quadrant TECHNIQUE: Volumetric scanning of the abdomen and pelvis was performed. Using automated exposure control and adjustment of the mA and/or kV according to patient size, radiation dose was kept as low as reasonably achievable to obtain optimal diagnostic quality images. DICOM format image data is av ailable electronically for review and comparison. FINDINGS: Lung bases are clear. No acute findings of the liver, spleen, adrenals, kidneys and pancreas. Tiny bi lateral renal cysts. Pancreas unremarkable. There is a small amount of free fluid in the cul-de-sac. No bowel obstruction. Note free air. Colon i s decompressed with questionable thickening. Follicular cysts are noted in the ovaries. CONCLUSION: 1. There is questionable minimal thickening of the colon which may indicate a very mild colitis. Ther e is a small amount free fluid in the pelvis. Adiel Montez MD on January 22, 2018 at 18:06 Board Certified Radiologist. This report was verified electronically.
[2018-01-22] MEDS ORDERED: ZOFR4TAB3 SL (18:33)
[2018-01-22] MEDS ORDERED: NORC5TAB PO (18:33)
[2018-01-22] MEDS ORDERED: METR-1 PO (18:33)
[2018-01-22] MEDS ORDERED: CIPR500T2 PO (18:33)
[2018-01-22] MEDS ORDERED: CIPROFLOXACIN 500 MG TAB PO ONE (19:00)
[2018-01-22] MEDS ORDERED: metroNIDAZOLE 500 MG TAB PO ONE (19:00)
[2018-01-22 19:32] VITALS: RESP 20
[2018-01-22] MEDS ORDERED: ONDANSETRON HCL 4 MG/2 ML VIAL IV PUSH ONE (19:45)
== END 2018-01-22 19:51 | disposition home or self-care (01) ==
LOC: NEPD 13:14
DX: K52.9 Noninfective gastroenteritis and colitis, unspecified (principal); K31.84 Gastroparesis
CPT/HCPCS: 74177; 80053; 81001; 83690; 84703; 85025; 96361; 96374; 96375; 96376; 99285; J1885; J2270; J2405; J7030; Q9967